=== PATIENT | female | born 1940 | race Caucasian/White ===

== ENCOUNTER → 2023-08-20 13:16 | Outpatient (REF) | payer MEDICARE, BC, SELFPAY | LOC: HWRAD 13:16 | PROVIDERS: ATTENDING PHYSICIAN Physician Assistant Medical | DX: R10.13 Epigastric pain (principal) | CPT/HCPCS: 74177; Q9967 ==

== ENCOUNTER → 2023-09-04 12:55 | Outpatient (REF) | payer MEDICARE, BC, SELFPAY | LOC: WDC 12:55 | PROVIDERS: ATTENDING PHYSICIAN Physician Assistant Medical | DX: N64.4 Mastodynia (principal) | CPT/HCPCS: 77062; 77063; 77066; 77067 ==

== ENCOUNTER 2024-02-27 16:40 | Emergency (ER) | payer MEDICARE, BC, SELFPAY ==
[2024-02-27 16:43] VITALS: BP 143/82
[2024-02-27 17:09] LABS: INR 1.38; PT 16.8 Sec (11.4-14.6)
[2024-02-27 17:13] LABS: ALT (SGPT) 11 U/L (0-35); AST (SGOT) 23 U/L (14-36); Albumin 4.6 g/dl (3.5-5.0); Alkaline Phosphatase 80 U/L (38-126); Blood Urea Nitrogen 17 mg/dl (7-17); Calcium 9.8 mg/dl (8.4-10.2); Carbon Dioxide 31 mmol/L (22-30); Chloride 101 mmol/L (98-107); Glucose 123 mg/dl (70-99); Potassium 3.8 mmol/L (3.5-5.1); Sodium 140 mmol/L (135-145); Total Bilirubin 0.6 mg/dl (0.2-1.3)
[2024-02-27 17:22] LABS: Troponin I < 0.012 ng/ml
[2024-02-27 17:32] LABS: Hematocrit 39.9 % (37.0-47.0); Hemoglobin 13.6 g/dL (12.0-16.0); Mean Corp Hgb Conc. 34.1 g/dL (33.0-37.0); Mean Corpuscular Hgb 30.8 pg (27.0-31.0); Mean Corpuscular Volume 90.3 fL (81.0-99.0); Mean Platelet Volume 11.3 fL (7.4-10.4); Platelet Count 190 10^3/uL (130-400); Red Blood Cell Count 4.42 10^6/uL (4.20-5.40); Red Cell Dist. Width 13.1 % (11.5-14.5); White Blood Cell Count 4.3 10^3/uL (4.8-10.8)
[2024-02-27 17:48] LABS: Absolute Neutrophils -Man Diff 2.4 10^3/uL (1.4-6.5); Band Neutrophils 0 % (0-3); Eosinophils 1 % (0-6); Lymphocytes 19 % (20-51); Monocytes 22 % (2-9); Normal RBC Morphology Yes; Pathologist Reviewed No; Platelets Checked Yes; Segmented Neutrophils 58 % (42-75); Total Cells Counted 100
[2024-02-27 17:57] VITALS: BMI 32.3
[2024-02-27 18:04] VITALS: BP 118/59
--- NOTE | 2024-02-27 18:33 | ED.GENMED ---
History of Present Illness
General
Chief Complaint: Cardiac Symptoms
Source: patient
Exam Limitations: none
Time Seen by Provider: 02/27/24 17:57
History of Present Illness
History of Present Illness:
This is a 83 year old female that comes in with c/o feeling like she was in atrial fib. states that over the past 2 weeks she felt like she was in atrial fib. States that at one time her heart rate was 143 last week. Then this week it was in the
100's. States that it is still in the 90's. States that this weekend she was feeling good. States that she has some chest pressure. and she was SOB with movement. States that she has nausea, diarrhea yesterday, headache, lightheaded and shaky.
Denies any fever, chills, abd pain, vomiting, dizziness, ,urinary burning.
Past History
Past History
ED Past Medical History: Arrthythmia (atrial fib), Asthma, CHF, COPD, HTN, Hyperthyroidism (Graves disease), Psychiatric (Anxiety), Other (mitral regurgitation, polymyalgia rheumatica, peptic ulcer disease, postoperative anemia, chronic diastolic
heart failure, diverticulitis, IBS, Ulcers), Other ('borderline dm') and Other (Patient has a heart murmur and diverticulitis diverticulosis)
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
Other
Social History
Tobacco: Former smoker
Alcohol: None
Drug: None
Personal:
Living: alone
Employment: Retired
Family History
Family History: Other (n/c)
Review of Systems
Review of Systems
All Other Systems: ROS reviewed and negative except as documented in HPI and ROS
Constitutional: Reports no symptoms; Denies fever or chills
EENT: Reports no symptoms
Respiratory: Reports cough and trouble breathing
Cardiac: Reports chest pain (Pressure)
ABD/GI: Reports nausea and diarrhea (Yesterday); Denies abdominal pain or vomiting
: Reports no symptoms; Denies dysuria, frequency or urgency
Musculoskeletal: Reports no symptoms
Skin: Reports no symptoms
Neurological: Reports dizzy and headache
Psychiatric: Reports no symptoms
Phy Exam
General Physical Exam
General Presentation: well appearing and no apparent distress
General age: appears stated age
General Skin: warm and dry
General Habitus: elderly
General Mental: alert
General Hydration: appears well hydrated
ENT Exam
ENT Exam: TM's normal, pharynx normal and neck supple
Eye Exam
Eye Exam: EOMI
Cardiovascular Exam
Cardiovascular Exam: regular rate/rhythm, no edema, normal peripheral pulses and other (Murmur)
Pulmonary Exam
Pulmonary Exam: lungs clear, no respiratory distress, no rales, chest non tender, no crackles, no rhonchi, no wheezing and no cough
Gastrointestinal Exam
Gastrointestinal Exam: normal bowel sounds, non tender, soft, no organomegaly, no pulsatile mass and non distended
Musculoskeletal Exam
Musculoskeletal Exam: full ROM and no edema
Skin Exam
Skin Exam: normal color, warm/dry, no rash and no petechia
Psychiatric Exam
Psychiatric Exam: normal mood/affect
Course
Orders/Labs/Results
Orders:
Orders
02/27/24 16:44
EKG [Electrocardiogram (*1)] Urgent
Reason for Study: Atrial Fibrillation
EKG- Treatment ONCE
02/27/24 16:52
Complete Blood Count/With Diff Urgent
Comprehensive Metabolic Panel Urgent
Manual Differential Urgent
Prothrombin Time Urgent
Troponin I Urgent
02/27/24 18:11
Urinalysis Reflex To Culture Urgent
Date Specimen was Collected: 02/27/24
Time Specimen was Collected: 18:09
Urine Microscopic Reflex Cult Urgent
02/27/24 18:41
0.9% Sodium Chloride 500 ml [Nss] 500 ml IV BOLUS
Acetaminophen [Tylenol] 1,000 mg PO NOW STA
CR Chest - 2 Views Urgent
Comment:
Reason For Exam: Chest pain, SOB
02/27/24 19:54
Troponin I Urgent
Abnormal Lab Results
02/27/24 02/27/24
16:52 18:11
WBC 4.3 L 10^3/uL
(4.8-10.8)
MPV 11.3 H fL
(7.4-10.4)
Lymphocytes (Manual) 19 L %
(20-51)
Monocytes (Manual) 22 H %
(2-9)
PT 16.8 H Sec
(11.4-14.6)
Carbon Dioxide 31 H mmol/L
(22-30)
Glucose 123 H mg/dl
(70-99)
Urine Bilirubin 1+ A
(Negative)
Leukocyte Esterase Rfl Trace A
(Negative)
02/27/24 16:52
02/27/24 16:52
WBC slightly low. PT 16.8 with INR 1.38, troponin <0.012, glucose nonfasting.
Second Troponin <0.012
Vital Signs
Initial and Last Documented VS:
Initial Vital Signs
Temp Pulse Resp BP Pulse Ox
98.6 F 86 17 143/82 97
02/27/24 16:43 02/27/24 16:43 02/27/24 16:43 02/27/24 16:43 02/27/24 16:43
Last Documented Vital Signs
Temp Pulse Resp BP Pulse Ox
98.6 F 75 14 118/59 96
02/27/24 16:43 02/27/24 18:30 02/27/24 18:30 02/27/24 18:04 02/27/24 18:30
MDM/Problems Addressed
Differential Diagnosis Includes:
coronary disease,
MDM/Problems Addressed:
This is a 83 year old female that comes in with c/o feeling like she was in atrial flb. states that this has been going on for 2 weeks. Then This week her heart rate was in the 100's to the 90;s. States that over the weekend she was feeling good and
then it came back.
Will checkl labs, Chest x-ray and Urine. will give IV fluids.
Back into see patient. Explained that her second Troponin is also normal. Will place patient on the Cardiology hot line for further evaluation with the [facility]. Patient has ambulated to the bathroom several times according to nursing with out
any difficulty. Patient to return if she feels her heart rate is 140 or she has any other concerns.
Chronic conditions affecting care: CAD
Acute Exacerbation and/or Progression of Chronic Illness: CAD
*Radiology
Radiology exam reviewed: preliminary read by ED provider (Chest- Negative for active disease. )
*Pulse Oximetry
Patient hypoxic: no
*EKG
Interpreted by ED Provider?: Yes
Heart Rate: 79
Rate: normal
Rhythm: sinus
[place]: normal axis
Interval: normal interval
QRS Pattern: normal QRS
Ischemia: T-wave inversion (III, aVR, V1, V2, )
*Die Caster Interpretation
Rate: normal
Heart Rate: 77
Rhythm: sinus
*Critical Care Note
Total Time (30-74mins, 75-104mins- exclusive of procedures): Not Applicable
ED Attending Note
-
Portions of this chart may have been created with voice recognition software.� Occasional wrong word or��sound alike� substitutions may have occurred due to the inherent limitations of voice recognition software.
Discharge Plan
Departure
Patient Disposition: Home (Routine Discharge)
Date of Disposition: 02/27/24
Time of Disposition: 20:54
Patient with high blood pressure during this ER visit?: No
Condition: Good
Covid-19: Not Applicable
Discharge Problem:
Chest pain, SOB (shortness of breath)
Instructions: Chest Pain (DC), Shortness of breath, Chest Pain DCA Follow Up
Prescriptions:
No Action
losartan 50 MG tablet
50 mg PO DAILY
albuterol sulfate [Ventolin HFA] 90 MCG/PUFF HFA aerosol inhaler
2 puff inhalation Q4H PRN (Reason: SOB)
citalopram 20 MG tablet
20 mg PO DAILY
propylthiouracil 50 MG tablet
50 mg PO BID
fexofenadine [Sujata] 180 MG tablet
180 mg PO DAILY
albuterol sulfate 1 PUFF HFA aerosol inhaler
2 puff inhalation R Q4HPRN PRN (Reason: SOB) Qty: 1 0RF
Eliquis 5 MG tablet
5 mg PO BID Qty: 0 0RF
Rx Instructions:
Start 01/28
pravastatin 20 MG tablet
20 mg PO HS
melatonin 3 mg Tablet
3 mg PO HS PRN (Reason: sleep )
ezetimibe 10 mg Tablet
10 mg PO DAILY
metoprolol succinate 50 mg Tablet Extended Release 24 Hr
50 mg PO BID Qty: 60 0RF
furosemide [Lasix] 40 mg tablet
40 mg PO BID Qty: 60 11RF
Referrals:
UNKNOWN - PT DOES,NOT KNOW [Family Provider] -
Activity Restrictions/Additional Instructions:
As discussed, your blood work is normal. Your chest x-ray is negative for any acute process. Your Urine is negative for infection. Please increase your water intake to 8-8oz glasses daily. You have been placed on the cardiology hot line. This means
that the [facility] office will call you the next business day for further evaluation. If over the weekend you feel your heart rate is fast or at 140 please return to the emergency room. IF YOU HAVE INCREASED OR CHANGING CHEST PAIN, INCREASED
SHORTNESS OF BREATH OR YOU HAVE ANY OTHER CONCERNS PLEASE RETURN TO THE EMERGENCY ROOM.
Interventions
Interventions:
*General Assessment Last Done: 02/27/24 18:05
ED- Fall Risk Assessment Last Done: 02/27/24 18:18
ED- Pulmonary Assessment Last Done: 02/27/24 18:06
ED- Cardiac Assessment Last Done: 02/27/24 18:06
Discharge Date and Time
Print Language: BANGLADESHI
[2024-02-27 18:34] LABS: Urine Albumin Trace (Neg - Trace); Urine Bilirubin 1+ (Negative); Urine Character Clear (Clear); Urine Color Amber; Urine Glucose Negative (Negative); Urine Ketone Negative (Negative); Urine Leukocyte Trace (Negative); Urine Nitrite Negative (Negative); Urine Occult Blood Negative (Negative); Urine Urobilinogen Negative (Neg - 1+)
[2024-02-27] MEDS: TYLENOL 1000 MG PO (18:51)
[2024-02-27] MEDS: NSS 500 IV (18:53)
[2024-02-27 19:20] LABS: Urine Mucus Few; Urine Red Blood Cell 0-2 /HPF (0-2); Urine Squamous Cell 0-2 /LPF (Few); Urine White Cell 0-2 /HPF (0-5)
[2024-02-27 20:26] LABS: Troponin I < 0.012 ng/ml
[2024-02-27] MEDS: ELIQUIS 5 MG PO (21:20)
== END 2024-02-27 21:24 | disposition home or self-care (01) ==
LOC: EMR 16:40
PROVIDERS: Clinical Nurse Specialist Family Health; Emergency Medicine; EMERGENCY PHYSICIAN Emergency Medicine
DX: R07.89 Other chest pain (principal); I48.91 Unspecified atrial fibrillation; J44.89 Other specified chronic obstructive pulmonary disease; I11.0 Hypertensive heart disease with heart failure; I50.32 Chronic diastolic (congestive) heart failure; F41.9 Anxiety disorder, unspecified; I25.10 Atherosclerotic heart disease of native coronary artery without angina pectoris; K58.9 Irritable bowel syndrome, unspecified; M35.3 Polymyalgia rheumatica; Z86.010 Personal history of colon polyps; Z87.11 Personal history of peptic ulcer disease; Z87.891 Personal history of nicotine dependence; Z90.49 Acquired absence of other specified parts of digestive tract; Z90.710 Acquired absence of both cervix and uterus; Z95.1 Presence of aortocoronary bypass graft; Z95.2 Presence of prosthetic heart valve
CPT/HCPCS: 99283; 96360; 71046; 80053; 81003; 81015; 84484; 85025; 85610; 93005

== ENCOUNTER → 2024-06-11 09:33 | Outpatient (REF) | payer MEDICARE, BC, SELFPAY | LOC: HWRAD 09:33 | PROVIDERS: ATTENDING PHYSICIAN Nurse Practitioner Adult Health; FAMILY PHYSICIAN Physician Assistant Medical; REFERRING PHYSICIAN Internal Medicine Cardiovascular Disease | DX: D72.819 Decreased white blood cell count, unspecified (principal) | CPT/HCPCS: 76700 ==

== ENCOUNTER → 2024-07-02 06:18 | Day surgery (SDC) | payer MEDICARE, BC, SELFPAY | LOC: GI 06:18 | PROVIDERS: ATTENDING PHYSICIAN Specialist | DX: R10.12 Left upper quadrant pain (principal); K31.7 Polyp of stomach and duodenum; K22.89 Other specified disease of esophagus; K31.89 Other diseases of stomach and duodenum | CPT/HCPCS: 43239; 88305; 88342 ==

== ENCOUNTER → 2024-07-05 12:30 | Outpatient (REF) | payer MEDICARE, BC, SELFPAY ==
[2024-07-05 14:07] LABS: ALT (SGPT) 15 U/L (0-35); AST (SGOT) 26 U/L (14-36); Albumin 4.7 g/dl (3.5-5.0); Alkaline Phosphatase 76 U/L (38-126); Direct Bilirubin 0.2 mg/dl (0.0-0.4); Total Bilirubin 0.9 mg/dl (0.2-1.3); Total Protein 7.1 g/dl (6.3-8.2)
[2024-07-05 15:14] LABS: Folate 7.3 ng/ml (2.76-20); Vitamin B12 320 pg/ml (239-931)
[2024-07-05 15:15] LABS: Erythrocyte Sed Rate 14 mm/hour (0-20)
[2024-07-05 15:20] LABS: Hematocrit 40.4 % (37.0-47.0); Hemoglobin 13.4 g/dL (12.0-16.0); Mean Corp Hgb Conc. 33.2 g/dL (33.0-37.0); Mean Corpuscular Hgb 30.7 pg (27.0-31.0); Mean Corpuscular Volume 92.7 fL (81.0-99.0); Red Blood Cell Count 4.36 10^6/uL (4.20-5.40); Red Cell Dist. Width 13.6 % (11.5-14.5); White Blood Cell Count 3.6 10^3/uL (4.8-10.8)
[2024-07-05 15:29] LABS: Mean Platelet Volume 11.7 fL (7.4-10.4); Platelet Count 133 10^3/uL (130-400)
[2024-07-07 07:31] LABS: Absolute Neutrophils -Man Diff 2.1 10^3/uL (1.4-6.5); Atypical Lymphocytes 3 %; Band Neutrophils 1 % (0-3); Lymphocytes 22 % (20-51); Monocytes 15 % (2-9); Myelocytes 1 % (-); Platelets Checked Yes; Segmented Neutrophils 58 % (42-75)
[2024-07-07 07:32] LABS: Anisocytosis Slight; Normal RBC Morphology No; Total Cells Counted 100
[2024-07-07 07:33] LABS: Ovalocytes FEW
== END ==
LOC: REG 12:30
PROVIDERS: ATTENDING PHYSICIAN Nurse Practitioner Adult Health; FAMILY PHYSICIAN Physician Assistant Medical
DX: R10.12 Left upper quadrant pain (principal); D72.819 Decreased white blood cell count, unspecified; D51.9 Vitamin B12 deficiency anemia, unspecified
CPT/HCPCS: 36415; 80076; 82607; 82746; 85025; 85652; 86038

== ENCOUNTER 2024-07-15 15:22 | Emergency (ER) | payer MEDICARE, BC, SELFPAY ==
[2024-07-15 15:30] VITALS: BP 119/62
--- NOTE | 2024-07-15 15:33 | ED.GENMED ---
ED Provider Triage
<Alexander Tinajero PA-C - Last Filed: 07/15/24 15:36>
-
Patient seen by provider in Triage?: Seen in Triage
84-year-old female with history of paroxysmal atrial fibrillation on Eliquis presents for evaluation of chest pain that occurred 2 days ago. She had a burning sensation in the bottom of her chest that radiated to both sides into her shoulder blades
in her neck. The pain is since resolved. She denies headache chest pain or shortness of breath currently. She tried to call her jewelry dipper, Dr. Randell Barker who sent her here for evaluation.
Vital signs are stable through triage. She has no pain currently. Will start workup with EKG troponin labs and chest x-ray
Patient seen by medical provider through triage and wants further assessment
History of Present Illness
<Alexander Tinajero PA-C - Last Filed: 07/15/24 15:36>
General
Chief Complaint: Chest Pain
Time Seen by Provider: 07/15/24 19:46
<Idalia Hicks MD - Last Filed: 07/15/24 22:36>
General
Source: patient and family
Exam Limitations: none
Nursing documentation reviewed up to this point in time: agreed with
History of Present Illness
History of Present Illness:
The patient is an 84-year-old female with a past medical history of CHF and A-fib who reports that she has had intermittent chest tightness, which she describes as a bandlike sensation around her chest and back. Patient reports that this discomfort
has occurred on a daily basis over the last 2 to 3 days. The patient reports that about 48 hours ago, on , it lasted at least 2 to 3 hours. Patient denies shortness of breath, cough and fever. She denies leg pain and leg swelling.
Patient reports that it occurred earlier today but she has not had symptoms for several hours. Patient denies any pain at this time. Patient reports it does not seem to be correlated with exertion or eating. Patient reports that she recently lost
her partner and adamantly does not want to be admitted to the hospital.
Past History
<Alexander Tinajero PA-C - Last Filed: 07/15/24 15:36>
Past History
ED Past Medical History: Arrthythmia (atrial fib), Asthma, CHF, COPD, HTN, Hyperthyroidism (Graves disease), Psychiatric (Anxiety), Other (mitral regurgitation, polymyalgia rheumatica, peptic ulcer disease, postoperative anemia, chronic diastolic
heart failure, diverticulitis, IBS, Ulcers), Other ('borderline dm') and Other (Patient has a heart murmur and diverticulitis diverticulosis)
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
Other
Social History
Tobacco: Former smoker
Alcohol: None
Drug: None
Personal:
Living: alone
Employment: Retired
Family History
Family History: Other (n/c)
Review of Systems
<Idalia Hicks MD - Last Filed: 07/15/24 22:36>
Review of Systems
Allergies reviewed?: Yes
All Other Systems: ROS reviewed and negative except as documented in HPI and ROS
Constitutional: Reports no symptoms
EENT: Reports no symptoms
Respiratory: Reports no symptoms
Cardiac: Reports chest pain
ABD/GI: Reports no symptoms
: Reports no symptoms
Musculoskeletal: Reports back pain
Skin: Reports no symptoms
Neurological: Reports no symptoms
Endocrine: Reports no symptoms
Hematologic/Lymphatic: Reports no symptoms
Psychiatric: Reports no symptoms
Phy Exam
<Idalia Hicks MD - Last Filed: 07/15/24 22:36>
Physical Exam
Physical Exam:
Physical Exam
General: no apparent distress, not acutely ill. Well and comfortable appearing
Neck: supple. no meningeal signs. normal psoterior pharynx
Heart: Regular rate, irregular rhythm. No reproducible chest pain when taking a deep breath
Lungs: no acute respiratory distress. clear bilaterally
Abdomen: normal bowel sounds. not tender. no CVAT. No pulsatile mass
Neuro: alert and oriented. no focal neurological deficits
Skin: no rash
Psychiatric: well kept. interactive and cooperative
Extremities: no edema. no calf tenderness. negative homans. good distal pulses
Scores
<Idalia Hicks MD - Last Filed: 07/15/24 22:36>
Heart Score for Chest Pain Patients
STEMI patient?: No
History: Moderately Suspicious
ECG: Nonspecific Repolarization
Age: >/= 65 years
Risk Factors: >/= 3 Risk Factors or History of CAD
Troponin: </= Normal Limit
Heart Score for Chest Pain Patients: 6
Heart Score Risk: 20.3% MACE over next 6 weeks
Course
<Alexander Tinajero PA-C - Last Filed: 07/15/24 15:36>
Orders/Labs/Results
Orders:
Orders
07/15/24 15:24
EKG [Electrocardiogram (*1)] Urgent
Reason for Study: Chest Pain
EKG- Treatment ONCE
07/15/24 15:33
CR Chest - 2 Views Urgent
Comment:
Reason For Exam: chest pain
07/15/24 15:47
Complete Blood Count/With Diff Urgent
Comprehensive Metabolic Panel Urgent
Manual Differential Urgent
Troponin I Urgent
07/15/24 21:08
Troponin I Urgent
Abnormal Lab Results
07/15/24
15:47
WBC 3.1 L 10^3/uL
(4.8-10.8)
RBC 4.17 L 10^6/uL
(4.20-5.40)
MCHC 32.6 L g/dL
(33.0-37.0)
MPV 11.4 H fL
(7.4-10.4)
Lymphocytes (Manual) 15 L %
(20-51)
Monocytes (Manual) 22 H %
(2-9)
Carbon Dioxide 31 H mmol/L
(22-30)
Glucose 101 H mg/dl
(70-99)
07/15/24 15:47
07/15/24 15:47
Vital Signs
Initial and Last Documented VS:
Initial Vital Signs
Temp Pulse Resp BP Pulse Ox
98.1 F 68 20 119/62 99
07/15/24 15:30 07/15/24 15:30 07/15/24 15:30 07/15/24 15:30 07/15/24 15:30
Last Documented Vital Signs
Temp Pulse Resp BP Pulse Ox
98.1 F 63 16 120/63 96
07/15/24 15:30 07/15/24 20:45 07/15/24 20:45 07/15/24 20:00 07/15/24 20:45
<Idalia Hicks MD - Last Filed: 07/15/24 22:36>
Orders/Labs/Results
Orders:
Orders
07/15/24 15:24
EKG [Electrocardiogram (*1)] Urgent
Reason for Study: Chest Pain
EKG- Treatment ONCE
07/15/24 15:33
CR Chest - 2 Views Urgent
Comment:
Reason For Exam: chest pain
07/15/24 15:47
Complete Blood Count/With Diff Urgent
Comprehensive Metabolic Panel Urgent
Manual Differential Urgent
Troponin I Urgent
07/15/24 21:08
Troponin I Urgent
Abnormal Lab Results
07/15/24
15:47
WBC 3.1 L 10^3/uL
(4.8-10.8)
RBC 4.17 L 10^6/uL
(4.20-5.40)
MCHC 32.6 L g/dL
(33.0-37.0)
MPV 11.4 H fL
(7.4-10.4)
Lymphocytes (Manual) 15 L %
(20-51)
Monocytes (Manual) 22 H %
(2-9)
Carbon Dioxide 31 H mmol/L
(22-30)
Glucose 101 H mg/dl
(70-99)
07/15/24 15:47
07/15/24 15:47
Vital Signs
Initial and Last Documented VS:
Initial Vital Signs
Temp Pulse Resp BP Pulse Ox
98.1 F 68 20 119/62 99
07/15/24 15:30 07/15/24 15:30 07/15/24 15:30 07/15/24 15:30 07/15/24 15:30
Last Documented Vital Signs
Temp Pulse Resp BP Pulse Ox
98.1 F 63 16 120/63 96
07/15/24 15:30 07/15/24 20:45 07/15/24 20:45 07/15/24 20:00 07/15/24 20:45
<Idalia Hicks MD - Last Filed: 07/15/24 22:36>
MDM/Problems Addressed
Differential Diagnosis Includes:
Acute coronary syndrome, aortic dissection, PE, pneumonia
MDM/Problems Addressed:
Patient presents with acute chest pain rating into the back
Chronic conditions affecting care: CAD
Acute Exacerbation and/or Progression of Chronic Illness: CAD
<Idalia Hicks MD - Last Filed: 07/15/24 22:36>
*Radiology
Radiology exam reviewed: preliminary read by ED provider (No acute disease. Increased markings of lungs bilaterally) and radiology read reviewed
*Pulse Oximetry
Patient hypoxic: no
*EKG
Interpreted by ED Provider?: Yes
Interpretation: abnormal
Comparison EKG: no changes
Rate: normal
Rhythm: sinus
[place]: normal axis
Interval: normal interval
QRS Pattern: normal QRS
Ischemia: non-specific ST changes
*Platform Supervisor Interpretation
Rate: normal
Interpretation: abnormal
Rhythm: a-fib
*Critical Care Note
Total Time (30-74mins, 75-104mins- exclusive of procedures): Not Applicable
Data Reviewed
Review of Other/Old Records Reveals: Operative Reports (Cardiac stress test done in May 2023 shows moderate risk)
Source: patient and family (Daughter who is at the bedside)
<Idalia Hicks MD - Last Filed: 07/15/24 22:36>
Patient Management
Social determinants of health affecting care: Living situation and Strong social support
Escalation/DeEscalation of care consider admission/obs:
Patient looks very well and comfortable. EKG does not look ischemic and troponins are negative x 2. I would expect her troponins to be elevated at this point if she had significant acute coronary syndrome given that patient had continuous chest
pain for hours within the last 48 hours. Although her troponins are normal and her EKGs do not look ischemic, I am still worried about her given her risk factors for acute coronary syndrome and her story of squeezing chest pain moving into her
back. I expressed this to both the patient and daughter and encouraged the patient to be watched in the hospital. Patient adamantly does not want to stay in the hospital. Her daughter is agreeable to having her go home. They assure me she will
return with any further chest pain or shortness of breath. They understand that her symptoms can be a precursor of a major acute cardiac health concern.
Given patient has no pleuritic chest pain is unlikely to be PE. Given patient has no symptoms for several hours it is unlikely to be aortic dissection
ED Attending Note
<Alexander Tinajero PA-C - Last Filed: 07/15/24 15:36>
-
Portions of this chart may have been created with voice recognition software.� Occasional wrong word or��sound alike� substitutions may have occurred due to the inherent limitations of voice recognition software.
Discharge Plan
Departure
Patient Disposition: Home (Routine Discharge)
Date of Disposition: 07/15/24
Time of Disposition: 21:47
Patient with high blood pressure during this ER visit?: No
Condition: Good
Covid-19: Not Applicable
Discharge Problem:
Chest pain in adult
Instructions: Chest Pain DCA Follow Up
Prescriptions:
No Action
losartan 50 MG tablet
50 mg PO DAILY
albuterol sulfate [Ventolin HFA] 90 MCG/PUFF HFA aerosol inhaler
2 puff inhalation Q4H PRN (Reason: SOB)
citalopram 20 MG tablet
20 mg PO DAILY
propylthiouracil 50 MG tablet
50 mg PO BID
fexofenadine [Sujata] 180 MG tablet
180 mg PO DAILY
albuterol sulfate 1 PUFF HFA aerosol inhaler
2 puff inhalation R Q4HPRN PRN (Reason: SOB) Qty: 1 0RF
Eliquis 5 MG tablet
5 mg PO BID Qty: 0 0RF
Rx Instructions:
Start 01/28
pravastatin 20 MG tablet
20 mg PO HS
melatonin 3 mg Tablet
3 mg PO HS PRN (Reason: sleep )
ezetimibe 10 mg Tablet
10 mg PO DAILY
metoprolol succinate 50 mg Tablet Extended Release 24 Hr
50 mg PO BID Qty: 60 0RF
furosemide [Lasix] 40 mg tablet
40 mg PO BID Qty: 60 11RF
Referrals:
Cory Nagel PA-C [Family Provider] -
Maia Barker MD [Active] - (Call to see in the office within 1 week)
Activity Restrictions/Additional Instructions:
Please return with any further chest pain or any shortness of breath. It is very important that you follow-up with Dr. Monteiro within 1 week. If you do not hear from her office within 48 hours, please give her a call, certainly by this Friday
to make an appointment.
Interventions
Interventions:
*Risk Screen - Suicide Last Done: 07/15/24 15:30
*General Assessment Last Done: 07/15/24 15:30
*Neglect/Abuse Screening Last Done: 07/15/24 15:30
Discharge Date and Time
Print Language: TRINIDADIAN
[2024-07-15 16:33] LABS: ALT (SGPT) 13 U/L (0-35); AST (SGOT) 24 U/L (14-36); Albumin 4.4 g/dl (3.5-5.0); Alkaline Phosphatase 67 U/L (38-126); Blood Urea Nitrogen 13 mg/dl (7-17); Carbon Dioxide 31 mmol/L (22-30); Chloride 100 mmol/L (98-107); Glucose 101 mg/dl (70-99); Potassium 3.9 mmol/L (3.5-5.1); Sodium 138 mmol/L (135-145); Total Bilirubin 0.8 mg/dl (0.2-1.3); Total Protein 6.7 g/dl (6.3-8.2); eGFR > 60.00
[2024-07-15 16:34] LABS: Hemoglobin 12.4 g/dL (12.0-16.0); Mean Corp Hgb Conc. 32.6 g/dL (33.0-37.0); Mean Corpuscular Hgb 29.7 pg (27.0-31.0); Mean Corpuscular Volume 91.1 fL (81.0-99.0); Mean Platelet Volume 11.4 fL (7.4-10.4); Platelet Count 192 10^3/uL (130-400); Red Blood Cell Count 4.17 10^6/uL (4.20-5.40); Red Cell Dist. Width 13.4 % (11.5-14.5); White Blood Cell Count 3.1 10^3/uL (4.8-10.8)
[2024-07-15 16:50] LABS: Troponin I < 0.012 ng/ml
[2024-07-15 17:09] LABS: Absolute Neutrophils -Man Diff 1.7 10^3/uL (1.4-6.5); Atypical Lymphocytes 2 %; Band Neutrophils 0 % (0-3); Eosinophils 4 % (0-6); Lymphocytes 15 % (20-51); Monocytes 22 % (2-9); Normal RBC Morphology Yes; Platelets Checked Yes; Segmented Neutrophils 57 % (42-75); Total Cells Counted 100
[2024-07-15 19:53] VITALS: BP 139/57
[2024-07-15 20:00] VITALS: BP 120/63
[2024-07-15 21:37] LABS: Troponin I < 0.012 ng/ml
== END 2024-07-15 22:31 | disposition home or self-care (01) ==
LOC: EMR 15:22
PROVIDERS: Physician Assistant; EMERGENCY PHYSICIAN Emergency Medicine; FAMILY PHYSICIAN Physician Assistant Medical
DX: R07.89 Other chest pain (principal); I11.0 Hypertensive heart disease with heart failure; I50.9 Heart failure, unspecified; I48.91 Unspecified atrial fibrillation; J45.909 Unspecified asthma, uncomplicated; E05.00 Thyrotoxicosis with diffuse goiter without thyrotoxic crisis or storm; I25.10 Atherosclerotic heart disease of native coronary artery without angina pectoris; K58.9 Irritable bowel syndrome, unspecified; M35.3 Polymyalgia rheumatica; Z86.0101 Personal history of adenomatous and serrated colon polyps; Z86.018 Personal history of other benign neoplasm; Z87.11 Personal history of peptic ulcer disease; Z87.891 Personal history of nicotine dependence; Z90.49 Acquired absence of other specified parts of digestive tract; Z90.710 Acquired absence of both cervix and uterus; Z95.1 Presence of aortocoronary bypass graft; Z95.2 Presence of prosthetic heart valve
CPT/HCPCS: 99283; 71046; 80053; 84484; 85025; 93005

== ENCOUNTER 2024-07-19 10:12 | Emergency (ER) | payer MEDICARE, BC, SELFPAY ==
[2024-07-19 10:33] VITALS: BP 145/59
[2024-07-19 11:20] VITALS: BP 128/69
[2024-07-19 11:55] LABS: ALT (SGPT) 12 U/L (0-35); AST (SGOT) 22 U/L (14-36); Albumin 4.3 g/dl (3.5-5.0); Alkaline Phosphatase 83 U/L (38-126); Blood Urea Nitrogen 15 mg/dl (7-17); Calcium 9.2 mg/dl (8.4-10.2); Carbon Dioxide 31 mmol/L (22-30); Chloride 101 mmol/L (98-107); Glucose 108 mg/dl (70-99); Potassium 3.5 mmol/L (3.5-5.1); Sodium 139 mmol/L (135-145); Total Bilirubin 0.7 mg/dl (0.2-1.3); Total Protein 6.5 g/dl (6.3-8.2); eGFR > 60.00
[2024-07-19 11:57] LABS: Hematocrit 36.9 % (37.0-47.0); Hemoglobin 12.1 g/dL (12.0-16.0); Mean Corp Hgb Conc. 32.8 g/dL (33.0-37.0); Mean Corpuscular Volume 91.3 fL (81.0-99.0); Mean Platelet Volume 10.8 fL (7.4-10.4); Platelet Count 193 10^3/uL (130-400); Red Blood Cell Count 4.04 10^6/uL (4.20-5.40); Red Cell Dist. Width 13.5 % (11.5-14.5)
[2024-07-19 12:00] VITALS: BP 131/62
[2024-07-19 12:03] LABS: Troponin I < 0.012 ng/ml
[2024-07-19 12:27] LABS: Absolute Neutrophils -Man Diff 1.6 10^3/uL (1.4-6.5); Atypical Lymphocytes 1 %; Band Neutrophils 0 % (0-3); Lymphocytes 18 % (20-51); Monocytes 25 % (2-9); Normal RBC Morphology Yes; Platelets Checked Yes; Segmented Neutrophils 56 % (42-75)
[2024-07-19 12:28] LABS: Total Cells Counted 100
[2024-07-19 12:37] VITALS: BP 160/54
--- NOTE | 2024-07-19 14:15 | ED.GENMED ---
History of Present Illness
General
Chief Complaint: Cardiac Symptoms
Source: patient and spouse
Exam Limitations: none
Time Seen by Provider: 07/19/24 11:14
Nursing documentation reviewed up to this point in time: agreed with
History of Present Illness
History of Present Illness:
84-year-old female past medical history of A-fib currently on Eliquis, CHF, hypertension, pulmonary hypertension presenting to the emergency department today with concerns of ongoing left upper quadrant abdominal pain which has been intermittent
over the past few months. Was seen by the primary care doctor today which sent her to the ER due to some swelling to her left leg with concerns of a blood clot. Patient has been taking her Eliquis as prescribed denies any shortness of breath. Did
have an episode of nausea and vomiting yesterday.
Past History
Past History
ED Past Medical History: Arrthythmia (atrial fib), Asthma, CHF, COPD, HTN, Hyperthyroidism (Graves disease), Psychiatric (Anxiety), Other (mitral regurgitation, polymyalgia rheumatica, peptic ulcer disease, postoperative anemia, chronic diastolic
heart failure, diverticulitis, IBS, Ulcers), Other ('borderline dm') and Other (Patient has a heart murmur and diverticulitis diverticulosis)
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
Other
Social History
Tobacco: Former smoker
Alcohol: None
Drug: None
Personal:
Living: alone
Employment: Retired
Family History
Family History: Other (n/c)
Review of Systems
Review of Systems
Allergies reviewed?: Yes
All Other Systems: ROS reviewed and negative except as documented in HPI and ROS
Phy Exam
Physical Exam
Physical Exam:
GENERAL: Alert , in no apparent distress
EYE: pupils equal and reactive
NECK: Supple, no significant adenopathy.
ENT: o/p clr, mmm.
CARDIAC: Regular rate and rhythm .
LUNGS: Clear breath sounds bilaterally, no acute respiratory distress, no wheezes/rales/rhonchi
ABDOMEN: Soft, without focal tenderness, no r/g, no cvat
NEUROLOGICAL: Alert and oriented, no focal neuro deficits
SKIN: Warm and dry, skin intact.
MUSCULOSKELETAL: No edema, well perfused.
PSYCH: Normal and appropriate interaction.
Course
Orders/Labs/Results
Orders:
Orders
07/19/24 10:15
Electrocardiogram (*1) Urgent
Reason for Study: Chest Pain
EKG- Treatment ONCE
07/19/24 11:26
Complete Blood Count/With Diff Urgent
Comprehensive Metabolic Panel Urgent
Manual Differential Urgent
Troponin I Urgent
07/19/24 11:53
CT Chest Pe Study Urgent
Comment:
Reason For Exam: chest pain radaitong to back, left leg swelling
Abnormal Lab Results
07/19/24
11:26
WBC 3.0 L 10^3/uL
(4.8-10.8)
RBC 4.04 L 10^6/uL
(4.20-5.40)
Hct 36.9 L %
(37.0-47.0)
MCHC 32.8 L g/dL
(33.0-37.0)
MPV 10.8 H fL
(7.4-10.4)
Lymphocytes (Manual) 18 L %
(20-51)
Monocytes (Manual) 25 H %
(2-9)
Carbon Dioxide 31 H mmol/L
(22-30)
Glucose 108 H mg/dl
(70-99)
07/19/24 11:26
07/19/24 11:26
Vital Signs
Initial and Last Documented VS:
Initial Vital Signs
Temp Pulse Resp BP Pulse Ox
98.1 F 59 16 145/59 100
07/19/24 10:33 07/19/24 10:33 07/19/24 10:33 07/19/24 10:33 07/19/24 10:33
Last Documented Vital Signs
Temp Pulse Resp BP Pulse Ox
98.1 F 60 15 160/54 94
07/19/24 10:33 07/19/24 13:30 07/19/24 13:15 07/19/24 12:37 07/19/24 13:30
MDM/Problems Addressed
MDM/Problems Addressed:
85-year-old female presenting to the emergency department with ongoing left upper quadrant abdominal pain also has noted some swelling to her left ankle. Patient has been taking her Eliquis. Vital signs on arrival are normal patient no distress
EKG normal labs unremarkable troponin negative CT scan of the chest was performed considering leg swelling and lower chest pain with radiation to the back. CT scan did not show any findings. Patient does have scheduled in 3 days with her
information technology architect. Patient appears stable for outpatient follow-up for this. Return precautions given.
*Critical Care Note
Total Time (30-74mins, 75-104mins- exclusive of procedures): Not Applicable
ED Attending Note
-
Portions of this chart may have been created with voice recognition software.� Occasional wrong word or��sound alike� substitutions may have occurred due to the inherent limitations of voice recognition software.
Discharge Plan
Departure
Patient Disposition: Home (Routine Discharge)
Date of Disposition: 07/19/24
Time of Disposition: 14:16
Patient with high blood pressure during this ER visit?: No
Condition: Good
Covid-19: Not Applicable
Discharge Problem:
Chest pain
Instructions: Chest Pain (DC)
Prescriptions:
No Action
losartan 50 MG tablet
50 mg PO DAILY
albuterol sulfate [Ventolin HFA] 90 MCG/PUFF HFA aerosol inhaler
2 puff inhalation Q4H PRN (Reason: SOB)
citalopram 20 MG tablet
20 mg PO DAILY
propylthiouracil 50 MG tablet
50 mg PO BID
fexofenadine [Sujata] 180 MG tablet
180 mg PO DAILY
albuterol sulfate 1 PUFF HFA aerosol inhaler
2 puff inhalation R Q4HPRN PRN (Reason: SOB) Qty: 1 0RF
Eliquis 5 MG tablet
5 mg PO BID Qty: 0 0RF
Rx Instructions:
Start 01/28
pravastatin 20 MG tablet
20 mg PO HS
melatonin 3 mg Tablet
3 mg PO HS PRN (Reason: sleep )
ezetimibe 10 mg Tablet
10 mg PO DAILY
metoprolol succinate 50 mg Tablet Extended Release 24 Hr
50 mg PO BID Qty: 60 0RF
furosemide [Lasix] 40 mg tablet
40 mg PO BID Qty: 60 11RF
Referrals:
Cory Nagel PA-C [Family Provider] -
Activity Restrictions/Additional Instructions:
You came to the emergency department today with concerns of ongoing left upper quadrant as well as the leg swelling. Here you had a CT PE that did not show any evidence of emergent process. Your cardiac workup was normal. Please follow-up closely
with your information technology architect. Return to the emergency department for any worsening, new or concerning symptoms.
Interventions
Interventions:
*Risk Screen - Suicide Last Done: 07/19/24 11:18
*General Assessment Last Done: 07/19/24 11:18
*Neglect/Abuse Screening Last Done: 07/19/24 11:18
*ED COVID-19 Vaccine History Last Done: 07/19/24 11:18
ED- Pulmonary Assessment Last Done: 07/19/24 11:18
ED- Cardiac Assessment Last Done: 07/19/24 11:18
Discharge Date and Time
Print Language: ARABIC
== END 2024-07-19 16:51 | disposition home or self-care (01) ==
LOC: EMR 10:12
PROVIDERS: Physician Assistant; EMERGENCY PHYSICIAN Emergency Medicine; FAMILY PHYSICIAN Physician Assistant Medical
DX: R10.12 Left upper quadrant pain (principal); R07.89 Other chest pain; R11.2 Nausea with vomiting, unspecified; R60.0 Localized edema; I48.91 Unspecified atrial fibrillation; I11.0 Hypertensive heart disease with heart failure; I50.32 Chronic diastolic (congestive) heart failure; M35.3 Polymyalgia rheumatica; K58.9 Irritable bowel syndrome, unspecified; K57.92 Diverticulitis of intestine, part unspecified, without perforation or abscess without bleeding; I27.20 Pulmonary hypertension, unspecified; R01.1 Cardiac murmur, unspecified; M19.90 Unspecified osteoarthritis, unspecified site; Z79.01 Long term (current) use of anticoagulants; Z96.651 Presence of right artificial knee joint; Z95.2 Presence of prosthetic heart valve; Z86.018 Personal history of other benign neoplasm; Z87.11 Personal history of peptic ulcer disease; Z87.891 Personal history of nicotine dependence; Z95.1 Presence of aortocoronary bypass graft; Z90.49 Acquired absence of other specified parts of digestive tract; Z98.0 Intestinal bypass and anastomosis status; Z88.6 Allergy status to analgesic agent; Z88.5 Allergy status to narcotic agent; Z88.2 Allergy status to sulfonamides
CPT/HCPCS: 99285; 71275; 80053; 84484; 85025; 93005; 93971; Q9967

== ENCOUNTER → 2024-07-23 13:52 | Outpatient (REF) | payer MEDICARE, BC, SELFPAY | LOC: HWRCS 13:52 | PROVIDERS: ATTENDING PHYSICIAN Internal Medicine Cardiovascular Disease; FAMILY PHYSICIAN Physician Assistant Medical | DX: R07.9 Chest pain, unspecified (principal); I25.10 Atherosclerotic heart disease of native coronary artery without angina pectoris; I35.1 Nonrheumatic aortic (valve) insufficiency | CPT/HCPCS: 93306 ==

== ENCOUNTER → 2024-07-28 07:26 | Outpatient (REF) | payer MEDICARE, BC, SELFPAY | LOC: DHCBC/DCA 07:26 | PROVIDERS: ATTENDING PHYSICIAN Internal Medicine Cardiovascular Disease; FAMILY PHYSICIAN Physician Assistant Medical | DX: R07.9 Chest pain, unspecified (principal); I25.10 Atherosclerotic heart disease of native coronary artery without angina pectoris; I35.1 Nonrheumatic aortic (valve) insufficiency | CPT/HCPCS: 78452; 93017; A9500; J2785 ==

== ENCOUNTER → 2024-08-02 10:00 | Outpatient (REF) | payer MEDICARE, BC, SELFPAY | LOC: PAVMRI 10:00 | PROVIDERS: ATTENDING PHYSICIAN Specialist; FAMILY PHYSICIAN Physician Assistant Medical | DX: R93.5 Abnormal findings on diagnostic imaging of other abdominal regions, including retroperitoneum (principal) | CPT/HCPCS: 74183; A9575 ==

== ENCOUNTER → 2024-08-16 12:32 | Outpatient (REF) | payer MEDICARE, BC, SELFPAY ==
[2024-08-16 11:49] LABS: % Basophils 0.7 % (0-2); % Eosinophils 1.8 % (0-6); % Immature Granulocytes 0.9 % (0-0.5); % Lymphocytes 19.5 % (20.5-51.1); % Monocytes 19.5 % (1.7-9.3); % Neutrophils 57.6 % (42.2-75.2); Absolute Eosinophils 0.1 10^3/uL (0-0.7); Absolute Lymphocytes 0.9 10^3/uL (1.2-3.4); Absolute Monocytes 0.9 10^3/uL (0.1-0.6); Absolute Neutrophils 2.5 10^3/uL (1.4-6.5); Hematocrit 43.9 % (37.0-47.0); Hemoglobin 14.4 g/dL (12.0-16.0); Mean Corp Hgb Conc. 32.8 g/dL (33.0-37.0); Mean Corpuscular Hgb 29.8 pg (27.0-31.0); Mean Corpuscular Volume 90.7 fL (81.0-99.0); Mean Platelet Volume 10.8 fL (7.4-10.4); Platelet Count 232 10^3/uL (130-400); Red Blood Cell Count 4.84 10^6/uL (4.20-5.40); Red Cell Dist. Width 12.8 % (11.5-14.5); White Blood Cell Count 4.4 10^3/uL (4.8-10.8)
[2024-08-16 13:29] LABS: Folate 6.1 ng/ml (2.76-20); Vitamin B12 811 pg/ml (239-931)
== END ==
LOC: OIDL 12:32
PROVIDERS: ATTENDING PHYSICIAN Internal Medicine Hematology & Oncology
DX: D72.819 Decreased white blood cell count, unspecified (principal); D51.9 Vitamin B12 deficiency anemia, unspecified
CPT/HCPCS: 82607; 82746; 85025

== ENCOUNTER → 2024-10-25 06:58 | Outpatient (REF) | payer MEDICARE, BC, SELFPAY ==
[2024-10-25 07:30] LABS: INR 1.22; PT 15.7 Sec (11.4-14.6)
[2024-10-25 07:40] VITALS: BP 116/55; BP_SYST 64
[2024-10-25 07:40] LABS: Hemoglobin 12.4 g/dL (12.0-16.0); Mean Corp Hgb Conc. 33.5 g/dL (33.0-37.0); Mean Corpuscular Hgb 30.2 pg (27.0-31.0); Red Blood Cell Count 4.11 10^6/uL (4.20-5.40); Red Cell Dist. Width 14.2 % (11.5-14.5); White Blood Cell Count 3.7 10^3/uL (4.8-10.8)
[2024-10-25 09:00] VITALS: BP 124/57; BP_SYST 68
[2024-10-25 09:17] VITALS: BP 106/45
[2024-10-25 09:31] LABS: Atypical Lymphocytes 2 %; Band Neutrophils 0 % (0-3); Eosinophils 1 % (0-6); Lymphocytes 26 % (20-51); Metamyelocytes 1 % (-); Monocytes 14 % (2-9); Segmented Neutrophils 56 % (42-75)
[2024-10-25 09:32] LABS: Hypochromasia Slight; Normal RBC Morphology No; Ovalocytes Slight; Platelets Checked Yes
[2024-10-25 09:33] LABS: Total Cells Counted 100
== END ==
LOC: RADI 06:58
PROVIDERS: ATTENDING PHYSICIAN Internal Medicine Hematology & Oncology; FAMILY PHYSICIAN Family Medicine
DX: D72.819 Decreased white blood cell count, unspecified (principal); D68.8 Other specified coagulation defects
CPT/HCPCS: 88305; 88311; 88312; 36415; 38222; 77012; 85025; 85610; 88313

== ENCOUNTER 2024-12-07 15:42 | Emergency (ER) | payer MEDICARE, BC, SELFPAY ==
[2024-12-07 15:55] VITALS: BP 116/73
[2024-12-07] MEDS: TYLENOL 1000 MG PO (18:32)
[2024-12-07 22:00] VITALS: BP 92/62
--- NOTE | 2024-12-07 22:16 | ED.GENMED ---
History of Present Illness
General
Chief Complaint: Fall
Source: patient
Exam Limitations: none
Time Seen by Provider: 12/07/24 21:44
Nursing documentation reviewed up to this point in time: agreed with
History of Present Illness
History of Present Illness:
84-year-old female past medical history of A-fib currently on Eliquis, CHF presenting to the emergency department after mechanical fall where she got tripped up wearing sandals, she fell hit the left side of her face on the railing hit her left knee
and also her lower ribs on the left anterior did not lose consciousness. EMS was called and she was brought to the ER. She was there with family was not on the ground for any extended period of time. No nausea vomiting numbness or weakness.
Past History
Past History
ED Past Medical History: Arrthythmia (atrial fib), Asthma, CHF, COPD, HTN, Hyperthyroidism (Graves disease), Psychiatric (Anxiety), Other (mitral regurgitation, polymyalgia rheumatica, peptic ulcer disease, postoperative anemia, chronic diastolic
heart failure, diverticulitis, IBS, Ulcers), Other ('borderline dm') and Other (Patient has a heart murmur and diverticulitis diverticulosis)
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
Other
Social History
Tobacco: Former smoker
Alcohol: None
Drug: None
Personal:
Living: alone
Employment: Retired
Family History
Family History: Other (n/c)
Review of Systems
Review of Systems
Allergies reviewed?: Yes
All Other Systems: ROS reviewed and negative except as documented in HPI and ROS
Phy Exam
Physical Exam
Physical Exam:
GENERAL: Alert , in no apparent distress
EYE: pupils equal and reactive
NECK: Supple, no significant adenopathy.
ENT: o/p clr, mmm.
CARDIAC: Regular rate and rhythm .
LUNGS: Clear breath sounds bilaterally, no acute respiratory distress, no wheezes/rales/rhonchi
ABDOMEN: Soft, without focal tenderness, no r/g, no cvat
NEUROLOGICAL: Alert and oriented, no focal neuro deficits
SKIN: Warm and dry, skin intact.
MUSCULOSKELETAL: Swelling and ecchymosis overlying the left anterior knee overlying the patella and infrapatellar region, well perfused.
PSYCH: Normal and appropriate interaction.
Course
Orders/Labs/Results
Orders:
Orders
12/07/24 15:49
Knee, Left 4 or More Views [CR Knee - Left 4 Or More View*] Urgent
Comment:
Reason For Exam: pain after a fall
12/07/24 15:[address] [CT Head W/o Iv Contrast] Urgent
Comment:
Reason For Exam: head injury
12/07/24 15:51
CT Cervical Spine W/o Iv Contr Urgent
Comment:
Reason For Exam: head injury after a fall
12/07/24 15:57
Ribs, Terry 4 View W/PA Chest [CR Ribs-terry 4 Vw W/pa Chest] Urgent
Comment:
Reason For Exam: fall
12/07/24 18:29
Acetaminophen [Tylenol] 1,000 mg .ROUTE .STK-MED ONE
12/07/24 18:32
Acetaminophen [Tylenol] 1,000 mg PO NOW STA
12/07/24 22:15
Harrison Wrap Left-Treatment ONCE
Vital Signs
Initial and Last Documented VS:
Initial Vital Signs
Temp Pulse Resp BP Pulse Ox
98 F 83 16 116/73 95
12/07/24 15:55 12/07/24 15:55 12/07/24 15:55 12/07/24 15:55 12/07/24 15:55
Last Documented Vital Signs
Temp Pulse Resp BP Pulse Ox
98 F 83 16 116/73 95
12/07/24 15:55 12/07/24 15:55 12/07/24 15:55 12/07/24 15:55 12/07/24 15:55
MDM/Problems Addressed
MDM/Problems Addressed:
84-year-old female presenting to the emergency department today after mechanical fall where she injured her left knee lower ribs and hit her face. Here she had a CT scan of the head and neck without emergent findings chest x-ray and rib series
without emergent finding as well as a an x-ray of the left knee without fracture. She was able to ambulate during examination. Neurologically intact. No evidence of any emergent injury stable for outpatient management.
*Critical Care Note
Total Time (30-74mins, 75-104mins- exclusive of procedures): Not Applicable
ED Attending Note
-
Portions of this chart may have been created with voice recognition software.� Occasional wrong word or��sound alike� substitutions may have occurred due to the inherent limitations of voice recognition software.
Discharge Plan
Departure
Patient Disposition: Home (Routine Discharge)
Date of Disposition: 12/07/24
Time of Disposition: 22:32
Patient with high blood pressure during this ER visit?: No
Condition: Good
Covid-19: Not Applicable
Discharge Problem:
Fall, Contusion of knee
Instructions: Contusion (DC), Preventing falls in adults
Prescriptions:
No Action
losartan 50 MG tablet
50 mg PO DAILY
albuterol sulfate [Ventolin HFA] 90 MCG/PUFF HFA aerosol inhaler
2 puff inhalation Q4H PRN (Reason: SOB)
citalopram 20 MG tablet
20 mg PO DAILY
propylthiouracil 50 MG tablet
50 mg PO BID
fexofenadine [Sujata] 180 MG tablet
180 mg PO DAILY
albuterol sulfate 1 PUFF HFA aerosol inhaler
2 puff inhalation R Q4HPRN PRN (Reason: SOB) Qty: 1 0RF
Eliquis 5 MG tablet
5 mg PO BID Qty: 0 0RF
Rx Instructions:
Start 01/28
pravastatin 20 MG tablet
20 mg PO HS
melatonin 3 mg Tablet
3 mg PO HS PRN (Reason: sleep )
ezetimibe 10 mg Tablet
10 mg PO DAILY
metoprolol succinate 50 mg Tablet Extended Release 24 Hr
50 mg PO BID Qty: 60 0RF
furosemide [Lasix] 40 mg tablet
40 mg PO BID Qty: 60 11RF
Referrals:
Jose C Kessler MD [Family Provider] -
Activity Restrictions/Additional Instructions:
You came to the emergency department today after mechanical fall. Your x-rays and CT scans did not show any emergent findings. Please rest and ice over the next few days. Return for any worsening, new or concerning symptoms.
Interventions
Interventions:
*Risk Screen - Suicide Last Done: 12/07/24 15:57
*Neglect/Abuse Screening Last Done: 12/07/24 15:57
Discharge Date and Time
Print Language: CAPE VERDEAN
[2024-12-07 22:58] VITALS: BMI 31.2
== END 2024-12-07 23:14 | disposition home or self-care (01) ==
LOC: EMR 15:42
PROVIDERS: EMERGENCY PHYSICIAN Emergency Medicine; FAMILY PHYSICIAN Family Medicine
DX: S80.02XA Contusion of left knee, initial encounter (principal); W01.0XXA Fall on same level from slipping, tripping and stumbling without subsequent striking against object, initial encounter; I48.91 Unspecified atrial fibrillation; I11.0 Hypertensive heart disease with heart failure; I50.32 Chronic diastolic (congestive) heart failure; E05.00 Thyrotoxicosis with diffuse goiter without thyrotoxic crisis or storm; K58.9 Irritable bowel syndrome, unspecified; M35.3 Polymyalgia rheumatica; Z79.01 Long term (current) use of anticoagulants; Z86.0101 Personal history of adenomatous and serrated colon polyps; Z86.018 Personal history of other benign neoplasm; Z87.11 Personal history of peptic ulcer disease; Z87.891 Personal history of nicotine dependence; Z90.49 Acquired absence of other specified parts of digestive tract; Z90.710 Acquired absence of both cervix and uterus; Z95.1 Presence of aortocoronary bypass graft; Z95.2 Presence of prosthetic heart valve
CPT/HCPCS: 99284; 70450; 71111; 72125; 73564

== ENCOUNTER 2024-12-09 11:30 | Emergency (ER) | payer MEDICARE, BC, SELFPAY ==
[2024-12-09 11:31] VITALS: BP 127/60
[2024-12-09 12:26] VITALS: BMI 30.8
--- NOTE | 2024-12-09 13:14 | ED.GENMED ---
History of Present Illness
General
Chief Complaint: Head Injury
Source: patient, records and physician
Time Seen by Provider: 12/09/24 12:10
History of Present Illness
History of Present Illness:
84-year-old female with past medical history of COPD, atrial fibrillation, CHF, valvular dysfunction, hypertension, diverticulitis presenting back to the emergency department after being seen 2 days ago for an accidental trip and fall resulting in
head injury, left lateral rib contusion and left knee contusion, today saw primary care provider in follow-up and was noting she still had headache, brain fog, difficulty concentrating, neck discomfort and left lateral rib and left knee pain.
Patient with noted bruising in these affected areas, states that she is on Eliquis which she continues to take. No vomiting, no visual changes, no focal weakness or numbness. Patient states her headache is not a typical headache and seems to be
more of a pressure-like aching sensation. No other concerns presently.
Past History
Past History
ED Past Medical History: Arrthythmia (atrial fib), Asthma, CHF, COPD, HTN, Hyperthyroidism (Graves disease), Psychiatric (Anxiety), Other (mitral regurgitation, polymyalgia rheumatica, peptic ulcer disease, postoperative anemia, chronic diastolic
heart failure, diverticulitis, IBS, Ulcers), Other ('borderline dm') and Other (Patient has a heart murmur and diverticulitis diverticulosis)
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
Other
Social History
Tobacco: Former smoker
Alcohol: None
Drug: None
Personal:
Living: alone
Employment: Retired
Family History
Family History: Other (n/c)
Review of Systems
Review of Systems
All Other Systems: ROS reviewed and negative except as documented in HPI and ROS
Phy Exam
Physical Exam
Physical Exam:
GENERAL: Alert , in no apparent distress
HEAD: Normocephalic atraumatic
EYE: pupils equal and reactive, 4 mm bilateral, clear conjunctiva
NECK: Supple, no midline tenderness
ENT: o/p clr, mmm.
CARDIAC: Regular rate and rhythm .
LUNGS: Clear breath sounds bilaterally, no acute respiratory distress, no wheezes/rales/rhonchi
ABDOMEN: Soft, without focal tenderness, no r/g, no cvat
NEUROLOGICAL: Alert and oriented, no focal neuro deficits
SKIN: Warm and dry, scattered bruising to the right posterior lower humeral region, left lateral chest wall along the mid axillary line extending slightly anterior to this measuring 1-1/2 cm with tenderness over this area, soft tissue swelling and
large contusion over the anterior knee extending into the proximal third of the tibia
MUSCULOSKELETAL: No edema, well perfused.
PSYCH: Normal and appropriate interaction.
Scores
Heart Failure Risk
Heart Failure Risk Score: Not Applicable
Heart Score for Chest Pain Patients
STEMI patient?: Not applicable
Withdrawal Assessment of Alcohol
Withdrawal Assessment Completed?: Not applicable
Course
Orders/Labs/Results
Orders:
Orders
12/09/24 11:33
CT Head W/o Iv Contrast Urgent
Comment:
Reason For Exam: Head injury on Eliquis, worse since visit on 12/07
12/09/24 13:15
Lidocaine [Lidocaine 4% Patch] 1 patch TOPICAL NOW STA
Apply Lidocaine patch(s) to:: left flank
Vital Signs
Initial and Last Documented VS:
Initial Vital Signs
Temp Pulse Resp BP Pulse Ox
98.1 F 80 16 127/60 93
12/09/24 11:31 12/09/24 11:31 12/09/24 11:31 12/09/24 11:31 12/09/24 11:31
Last Documented Vital Signs
Temp Pulse Resp BP Pulse Ox
98.3 F 62 13 127/60 92
12/09/24 12:00 12/09/24 12:17 12/09/24 12:17 12/09/24 11:31 12/09/24 12:17
MDM/Problems Addressed
Differential Diagnosis Includes:
Postconcussive syndrome, intracranial bleeding, rib fracture, rib contusion, no concern for visceral injury
MDM/Problems Addressed:
84-year-old female sent back to the emergency department by primary care provider for reevaluation after being seen 2 days ago following a fall. Patient had CT of her head, cervical spine, rib x-ray and knee x-ray completed which did not show any
acute abnormalities. Based off patient's presenting symptoms today I suspect postconcussive syndrome is most likely diagnosis. I reviewed with patient and daughter that her x-ray imaging did not show any fractures of the ribs however there was a
possibility for a nondisplaced fracture but given patient is not in any respiratory distress, no difficulty breathing that I did not feel obtaining an emergent CT scan would change her disposition and that she would still be being discharged home.
Patient does not wish to be admitted in any capacity either making obtaining CT scan an unneeded test. I do not suspect any visceral injury given patient is so stable 2 days following the injury and is anticoagulated. Will obtain CT scan of the
head given her neurologic symptoms however I suspect this is most likely post concussive
*Radiology
Radiology exam reviewed: radiology read reviewed
*Pulse Oximetry
Patient hypoxic: no
*Critical Care Note
Total Time (30-74mins, 75-104mins- exclusive of procedures): Not Applicable
Data Reviewed
Review of Other/Old Records Reveals: Records and Radiology Studies
Patient Management
Discussion with other providers: PCP
Escalation/DeEscalation of care consider admission/obs:
CT unremarkable. Patient able to ambulate. Aware of return precautions. I did notify the primary care provider who sent patient to the ER about patient's updated results. Patient is stable for discharge home.
ED Attending Note
-
Portions of this chart may have been created with voice recognition software.� Occasional wrong word or��sound alike� substitutions may have occurred due to the inherent limitations of voice recognition software.
Discharge Plan
Departure
Patient Disposition: Home (Routine Discharge)
Date of Disposition: 12/09/24
Time of Disposition: 13:14
Patient with high blood pressure during this ER visit?: No
Discharge Problem:
Concussion, Contusion of rib on left side
Instructions: Concussion, Adult (DC)
Prescriptions:
No Action
losartan 50 MG tablet
50 mg PO DAILY
albuterol sulfate [Ventolin HFA] 90 MCG/PUFF HFA aerosol inhaler
2 puff inhalation Q4H PRN (Reason: SOB)
citalopram 20 MG tablet
20 mg PO DAILY
propylthiouracil 50 MG tablet
50 mg PO BID
fexofenadine [Sujata] 180 MG tablet
180 mg PO DAILY
albuterol sulfate 1 PUFF HFA aerosol inhaler
2 puff inhalation R Q4HPRN PRN (Reason: SOB) Qty: 1 0RF
Eliquis 5 MG tablet
5 mg PO BID Qty: 0 0RF
Rx Instructions:
Start 01/28
pravastatin 20 MG tablet
20 mg PO HS
melatonin 3 mg Tablet
3 mg PO HS PRN (Reason: sleep )
ezetimibe 10 mg Tablet
10 mg PO DAILY
metoprolol succinate 50 mg Tablet Extended Release 24 Hr
50 mg PO BID Qty: 60 0RF
furosemide [Lasix] 40 mg tablet
40 mg PO BID Qty: 60 11RF
Interventions
Interventions:
*Risk Screen - Suicide Last Done: 12/09/24 12:27
*General Assessment Last Done: 12/09/24 12:27
*Neglect/Abuse Screening Last Done: 12/09/24 12:27
*ED- Fall Risk Assessment Last Done: 12/09/24 12:27
*ED COVID-19 Vaccine History Last Done: 12/09/24 12:27
ED- Neurological Assessment Last Done: 12/09/24 12:27
ED-Skin Assessment Last Done: 12/09/24 12:27
Discharge Date and Time
Print Language: ROMANSH
[2024-12-09] MEDS: LIDOCAINE 4% PATCH 1 PATCH TOPICAL (13:31)
== END 2024-12-09 14:00 | disposition home or self-care (01) ==
LOC: EMR 11:30
PROVIDERS: EMERGENCY PHYSICIAN Emergency Medicine; FAMILY PHYSICIAN Physician Assistant Medical
DX: S06.0XAA Concussion with loss of consciousness status unknown, initial encounter (principal); S20.212A Contusion of left front wall of thorax, initial encounter; S40.021A Contusion of right upper arm, initial encounter; S80.02XA Contusion of left knee, initial encounter; M54.2 Cervicalgia; W01.0XXA Fall on same level from slipping, tripping and stumbling without subsequent striking against object, initial encounter; I48.91 Unspecified atrial fibrillation; I11.0 Hypertensive heart disease with heart failure; J44.89 Other specified chronic obstructive pulmonary disease; I50.32 Chronic diastolic (congestive) heart failure; K57.90 Diverticulosis of intestine, part unspecified, without perforation or abscess without bleeding; K58.9 Irritable bowel syndrome, unspecified; F41.9 Anxiety disorder, unspecified; E05.00 Thyrotoxicosis with diffuse goiter without thyrotoxic crisis or storm; M35.3 Polymyalgia rheumatica; R01.1 Cardiac murmur, unspecified; Z98.0 Intestinal bypass and anastomosis status; Z79.01 Long term (current) use of anticoagulants; Z95.1 Presence of aortocoronary bypass graft; Z95.2 Presence of prosthetic heart valve; Z96.651 Presence of right artificial knee joint; Z87.891 Personal history of nicotine dependence; Z87.11 Personal history of peptic ulcer disease; Z86.018 Personal history of other benign neoplasm
CPT/HCPCS: 99284; 70450

== ENCOUNTER 2025-03-19 17:08 | Emergency (ER) | payer MEDICARE, BC, SELFPAY ==
[2025-03-19 17:09] VITALS: BP 136/104
--- NOTE | 2025-03-19 20:15 | ED.MUSCINJ ---
HPI-Injury
General
Chief Complaint: Fall
Source: patient
Exam Limitations: none
Time Seen by Provider: 03/19/25 19:44
Nursing documentation reviewed up to this point in time: agreed with
History of Present Illness-Injury
Initial Injury comments:
85 yo female with hx Afib on Eliquis, COPD, CHF, HTN, Grave's disease, anxiety, R knee replaced 2013, presents after a fall with right shoulder and right knee pain. Her shopping cart was drifting down incline and toward a person's open car door, she
ran after it, stumbled, fell onto right shoulder and knee. Did not hit her head. Denies neck or back pain.
Past History
Past History
ED Past Medical History: Arrthythmia (atrial fib), Asthma, CHF, COPD, HTN, Hyperthyroidism (Graves disease), Psychiatric (Anxiety), Other (mitral regurgitation, polymyalgia rheumatica, peptic ulcer disease, postoperative anemia, chronic diastolic
heart failure, diverticulitis, IBS, Ulcers), Other ('borderline dm') and Other (Patient has a heart murmur and diverticulitis diverticulosis)
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
Other
Social History
Tobacco: Former smoker
Alcohol: None
Drug: None
Personal:
Living: alone
Employment: Retired
Family History
Family History: Other (n/c)
Review of Systems
Review of Systems
Allergies reviewed?: Yes
All Other Systems: ROS reviewed and negative except as documented in HPI and ROS
Phy Exam
Physical Exam
Physical Exam:
GENERAL: No acute distress. A&Ox3.
CONSTITUTIONAL: Afebrile.
EYES: clear, conjunctivae normal
ENMT: moist mucus membranes, Pharynx nl
RESPIRATORY: Regular respirations, nonlabored, lungs clear.
CARDIOVASCULAR: Regular rate and rhythm, no murmurs, no rubs.
GI: Soft, nontender, normal BS
MUSCULOSKELETAL: No spinal bony tenderness. R shoulder with mild swelling, no discoloration, nearly full ROM with discomfort. Distal n/v intact. No clavicle tenderness, rest of arm nontender.
R knee with local ecchymosis and mild swelling just lateral and below patella. Adequate ROM. Distal n/v intact. Moves with ease. Well perfused.
SKIN: Warm, dry, pink
PSYCH: Normal mood and affect. Well kept, interactive and appropriate
NEUROLOGIC: Awake, alert and oriented. No focal neurological deficits
Injury Course
Orders/Labs/Results
Orders:
Orders
03/19/25 17:13
CR Clavicle - Right Complete Urgent
Comment:
Reason For Exam: fall
CR Knee- Right 4 Or More View* Urgent
Comment:
Reason For Exam: fall
CR Shoulder, Trauma - Right Urgent
Comment:
Reason For Exam: fall
03/19/25 20:37
Acetaminophen [Tylenol] 1,000 mg PO NOW STA
MDM/Problems Addressed
Differential Diagnosis Includes:
soft tissue injury vs fractures R shoulder, clavicle, knee
MDM/Problems Addressed:
85 yo female with hx Afib on Eliquis, COPD, CHF, HTN, Grave's disease, anxiety, R knee replaced 2013, presents after a fall with right shoulder and right knee pain. Her shopping cart was drifting down incline and toward a person's open car door, she
ran after it, stumbled, fell onto right shoulder and knee. Did not hit her head. Denies neck or back pain.
Shoulder, knee and clavicle xrays are negative.
Pt OOB and ambulated to BR steadily, comfortably
Moving right shoulder/arm adequately with some pain, no need for sling
Chronic conditions affecting care: Arrhythmia (Eliquis)
*Pulse Oximetry
SaO2: 96
Oxygen Mode of Delivery: Room air
Patient hypoxic: not evaluated
*Critical Care Note
Total Time (30-74mins, 75-104mins- exclusive of procedures): Not Applicable
ED Attending Note
-
Portions of this chart may have been created with voice recognition software.� Occasional wrong word or��sound alike� substitutions may have occurred due to the inherent limitations of voice recognition software.
Discharge Plan
Departure
Patient Disposition: Home (Routine Discharge)
Date of Disposition: 03/19/25
Time of Disposition: 20:25
Patient with high blood pressure during this ER visit?: No
Condition: Good
Discharge Problem:
Fall from slip, trip, or stumble, Contusion of right knee, Contusion of right shoulder
Instructions: Contusion (DC), Shoulder Sprain ED
Prescriptions:
No Action
losartan 50 MG tablet
50 mg PO DAILY
albuterol sulfate [Ventolin HFA] 90 MCG/PUFF HFA aerosol inhaler
2 puff inhalation Q4H PRN (Reason: SOB)
citalopram 20 MG tablet
20 mg PO DAILY
propylthiouracil 50 MG tablet
50 mg PO BID
fexofenadine [Sujata] 180 MG tablet
180 mg PO DAILY
albuterol sulfate 1 PUFF HFA aerosol inhaler
2 puff inhalation R Q4HPRN PRN (Reason: SOB) Qty: 1 0RF
Eliquis 5 MG tablet
5 mg PO BID Qty: 0 0RF
Rx Instructions:
Start 01/28
pravastatin 20 MG tablet
20 mg PO HS
melatonin 3 mg Tablet
3 mg PO HS PRN (Reason: sleep )
ezetimibe 10 mg Tablet
10 mg PO DAILY
metoprolol succinate 50 mg Tablet Extended Release 24 Hr
50 mg PO BID Qty: 60 0RF
furosemide [Lasix] 40 mg tablet
40 mg PO BID Qty: 60 11RF
Referrals:
Alexandria Canales I., DO [Active, Orthopedics] - As needed
Activity Restrictions/Additional Instructions:
As we discussed, your xrays show nothing broken or out of place.
Tylenol 1000 mg up to 3 times a day as needed for pain.
See the orthopedic doctor if the shoulder is not a LOT better in one week or not 100% better in 3-4 weeks.
Interventions
Interventions:
*Risk Screen - Suicide Last Done: 03/19/25 17:09
*General Assessment Last Done: 03/19/25 17:09
*Neglect/Abuse Screening Last Done: 03/19/25 17:09
*ED COVID-19 Vaccine History Last Done: 03/19/25 17:09
Discharge Date and Time
Print Language: GREEK
[2025-03-19] MEDS: TYLENOL 1000 MG PO (20:51)
[2025-03-19 21:59] VITALS: BP 138/96
== END 2025-03-19 22:00 | disposition home or self-care (01) ==
LOC: EMR 17:08
PROVIDERS: EMERGENCY PHYSICIAN Emergency Medicine; FAMILY PHYSICIAN Physician Assistant Medical
DX: S80.01XA Contusion of right knee, initial encounter (principal); S40.011A Contusion of right shoulder, initial encounter; W01.0XXA Fall on same level from slipping, tripping and stumbling without subsequent striking against object, initial encounter; I48.91 Unspecified atrial fibrillation; J44.89 Other specified chronic obstructive pulmonary disease; I11.0 Hypertensive heart disease with heart failure; I50.32 Chronic diastolic (congestive) heart failure; E05.00 Thyrotoxicosis with diffuse goiter without thyrotoxic crisis or storm; I34.0 Nonrheumatic mitral (valve) insufficiency; K58.9 Irritable bowel syndrome, unspecified; M35.3 Polymyalgia rheumatica; Z79.01 Long term (current) use of anticoagulants; Z86.0101 Personal history of adenomatous and serrated colon polyps; Z86.018 Personal history of other benign neoplasm; Z87.11 Personal history of peptic ulcer disease; Z87.891 Personal history of nicotine dependence; Z90.49 Acquired absence of other specified parts of digestive tract; Z90.710 Acquired absence of both cervix and uterus; Z95.1 Presence of aortocoronary bypass graft; Z95.2 Presence of prosthetic heart valve; Z96.651 Presence of right artificial knee joint
CPT/HCPCS: 99283; 73000; 73030; 73564

== ENCOUNTER → 2025-04-22 10:04 | Outpatient (REF) | payer MEDICARE, BC, SELFPAY | LOC: RCS 10:04 | PROVIDERS: ATTENDING PHYSICIAN Internal Medicine Cardiovascular Disease; FAMILY PHYSICIAN Physician Assistant Medical | DX: R07.9 Chest pain, unspecified (principal); I25.10 Atherosclerotic heart disease of native coronary artery without angina pectoris; I35.1 Nonrheumatic aortic (valve) insufficiency | CPT/HCPCS: 93306 ==